=== PATIENT | female | born 1970 | race Caucasian/White ===

== ENCOUNTER 2019-08-22 22:31 | Emergency (ER) | payer OTHER ==
[~2019-08-22] VITALS: Ht 162.6 cm; Wt 136.1 kg
[2019-08-22] MEDS ORDERED: SIMVASTATIN80 MG PO (23:01)
[2019-08-22] MEDS ORDERED: NORVASC 2.5 MG2.5 M1 PO (23:01)
[2019-08-22] MEDS ORDERED: CARVEDILOL12.5 MG PO (23:01)
[2019-08-22 23:28] LABS: ABSOLUTE BASOPHILS 0.1 thou/uL (0.0-0.2); ABSOLUTE EOSINOPHILS 0.2 thou/uL (0.0-0.7); ABSOLUTE LYMPHOCYTES 2.1 thou/uL (0.8-5.3); ABSOLUTE MONOCYTES 0.7 thou/uL (0.0-1.2); ABSOLUTE NEUTROPHILS 3.9 thou/uL (1.6-8.1); BASOPHILS 1.5 %; EOSINOPHILS 2.5 %; HEMATOCRIT 41.7 % (37.0-47.0); LYMPHOCYTES 29.8 %; MCH 28.9 pg (26.0-34.0); MCHC 33.6 g/dL (28.0-37.0); MONOCYTES 10.1 %; MPV 9.4 fl. (7.2-11.1); NUCLEATED RBCS 0 /100WBC; PLATELET COUNT* 265 thou/uL (150-400); POLYS 56.1 %; RBC 4.85 mil/uL (4.20-5.00); RDW-CV 15.3 % (10.5-14.5)
[2019-08-22 23:43] LABS: CALCIUM 8.7 mg/dL (8.5-10.1); CREATININE 0.8 mg/dL (0.6-1.3); POTASSIUM 3.2 mmol/L (3.5-5.1)
[2019-08-22 23:44] LABS: APTT 25.7 Seconds (25.0-31.3); PROTIME 10.7 Seconds (9.20-11.50)
[2019-08-22 23:55] LABS: CK-MB MASS 0.5 ng/mL (<0.5-3.6); MAGNESIUM 1.8 mg/dL (1.8-2.4); TOTAL BILIRUBIN 0.3 mg/dL (<0.1-1.0); TOTAL PROTEIN 8.3 g/dL (6.4-8.2)
[2019-08-23 00:22] VITALS: BP 141/75
--- NOTE | 2019-08-23 11:18 | EKG ---
[place] [address] ELECTROCARDIOGRAM REPORT Name: ANGIE ZUNIGA Room: [facility]#: [id number] Admission: 08/22/19 Attend Phys: Discharge: 08/23/19 Date of : 70 Date of Service: 08/22/19 2305 Report #: [id number] THIS REPORT FOR: cc: Faye Moreira,Stewart Cox MD [facility] ~ THIS REPORT FOR: //name// [facility] ED Test Date: 2019-08-22 Test Time: 23:05:59 Pat Name: ANGIE ZUNIGA Department: Room: Gender: F Skull [employer]itter: : 1970 Requested By: Jose Humphries Order Number: [id number] MD: Stewart Arenas Measurements Intervals [employer] Rate: 103 P: 41 MD: 185 QRS: 7 QRSD: 88 T: 16 QT: 333 QTc: 436 Interpretive Statements Sinus tachycardia Probable left atrial enlargement No previous ECG available for comparison Electronically Signed On 08-23-2019 11:17:21 [employer]TER [employer]PERVIS[employer] by Stewart Arenas [email or web address] <ELECTRONICALLY SIGNED> By: Stewart Arenas MD, [facility] 08/23/19 1117 2305 2305 Stewart Arenas MD, [facility] /EPI
== END 2019-08-23 00:23 | disposition home or self-care (01) ==
LOC: M.ERS 22:31
PROVIDERS: Family Medicine
DX: I10 Essential (primary) hypertension (principal); E78.00 Pure hypercholesterolemia, unspecified; Z88.2 Allergy status to sulfonamides; Z90.49 Acquired absence of other specified parts of digestive tract